=== PATIENT | female | born 1985 | race Caucasian/White ===

== ENCOUNTER 2018-08-04 13:27 | Emergency (ER) | payer OTHER ==
[2018-08-04] MEDS ORDERED: TETRACAINE HCL 0.5% 2ML OPTH ONE (14:44)
[2018-08-04] MEDS ORDERED: FLUORESCEIN SODIUM 0.6 MG/WRAP ONE (14:44)
[2018-08-04] MEDS ORDERED: WATER FOR INJ,STERILE 10 ML ONE (14:47)
--- NOTE | 2018-08-04 14:52 | ER ---
Nurse's Notes [facility] Name: Suri Oliveira Age: 32 yrs Sex: Female : 1985 Arrival Date: 08/04/2018 Time: 13:40 Bed 15 Private MD: Diagnosis: Ocular pain, left eye Presentation: 08/04 13:42 Presenting complaint: Patient states: "A couple of days ago my left eye started aj1 hurting, so I looked to see if there was something in there but I couldn't see anything. Today its starting to blur and give me a headache and it feels like something is stabbing me in the eyeball." Denies injury to eye. Transition of care: patient was not received from another setting of care. Onset of symptoms was July 30, 2018. Risk Assessment: Do you want to hurt yourself or someone else? Patient reports no desire to harm self or others. Initial Sepsis Screen: Does the patient meet any 2 criteria? No. Patient's initial sepsis screen is negative. Does the patient have a suspected source of infection? No. Patient's initial sepsis screen is negative. Care prior to arrival: None. 13:42 Method Of Arrival: Ambulatory aj1 13:42 Acuity: AROLDO 3 aj1 Triage Assessment: 13:44 General: Appears in no apparent distress. comfortable, Behavior is calm, cooperative, aj1 appropriate for age. Pain: Complains of pain in left eye Pain does not radiate. Pain currently is 6 out of 10 on a pain scale. Neuro: Level of Consciousness is awake, alert, obeys commands. Cardiovascular: Patient's skin is warm and dry. Respiratory: Airway is patent Respiratory effort is even, unlabored, Respiratory pattern is regular, symmetrical. 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 - Social history:: Smoking status: Patient/guardian denies using tobacco. - Ebola Screening: : Patient denies travel to an Ebola-affected area in the 21 days before illness onset. - Family history:: not pertinent. Screenin:14 Abuse screen: Denies threats or abuse. Denies injuries from another. Nutritional hj screening: No deficits noted. Tuberculosis screening: No symptoms or risk factors identified. Fall Risk None identified. Assessment: 13:30 General: Appears in no apparent distress. uncomfortable, Behavior is calm, cooperative, hj appropriate for age. Pain: Complains of pain in left eye. Neuro: Level of Consciousness is awake, alert, obeys commands, Oriented to person, place, time, situation, Appropriate for age. Cardiovascular: Capillary refill < 3 seconds Patient's skin is warm and dry. Respiratory: Airway is patent Respiratory effort is even, unlabored, Respiratory pattern is regular, symmetrical. GI: No signs and/or symptoms were reported involving the gastrointestinal system. : No signs and/or symptoms were reported regarding the genitourinary system. EENT: Reports pain in left eye. Derm: No signs and/or symptoms reported regarding the dermatologic system. Musculoskeletal: No signs and/or symptoms reported regarding the musculoskeletal system. Vital Signs: 13:44 BP 111 / 89; Pulse 81; Resp 18; Temp 97.4; Pulse Ox 100% on R/A; Weight 56.7 kg (R); aj1 Height 5 ft. 6 in. (167.64 cm) (R); Pain 6/10; 14:56 BP 110 / 80; Pulse 80; Resp 18; Pulse Ox 100% on R/A; hj 13:44 Body Mass Index 20.18 (56.70 kg, 167.64 cm) aj1 Visual Acuity: 14:55 Left Eye Visual acuity 20/25, ; Right Eye Visual acuity 20/20, ; Both Eyes Visual hj acuity 20/25; With Lenses; ED Course: 13:40 Patient arrived in ED. mr 13:44 Triage completed. aj1 13:44 Arm band placed on Patient placed in an exam room. aj1 14:00 Timothy Campbell RN is Primary Nurse. hj 14:06 Augusto Bacon MD is Attending Physician. [facility] 14:14 Patient has correct armband on for positive identification. Bed in low position. Call hj light in reach. Side rails up X 1. 14:55 No provider procedures requiring assistance completed. Patient did not have IV access hj during this emergency room visit. 15:17 Primary Nurse role handed off by Timothy Campbell RN hj Administered Medications: 14:44 Drug: Tetracaine Drops 0.5 % 1 drops Route: Ophthalmic; Site: left eye; la1 Outcome: 14:51 Discharge ordered by . katherin 14:55 Discharged to home ambulatory. 14:55 Condition: stable 14:55 Discharge instructions given to patient, Instructed on discharge instructions, follow up and referral plans. Demonstrated understanding of instructions, follow-up care. 15:02 Instructed on medication usage, Demonstrated understanding of medications. hj 15:02 Patient left the ED. hj 15:19 Patient left the ED. Signatures: Fabiana Santamaria, RN RN aj1 Augusto Bacon MD MD cha Rivera, Mary mr Alcon Estrada RN RN laTimothy Keys RN RN hj
--- NOTE | 2018-08-04 14:52 | EDPHYS ---
Physician Documentation [facility] Name: Suri Oliveira Age: 32 yrs Sex: Female : 1985 Arrival Date: 08/04/2018 Time: 13:40 Bed 15 Private MD: ED Physician Augusto Bacon HPI: 08/04 14:43 This 32 yrs old Female presents to ER via Ambulatory with complaints of Eye katherin Problem. 14:43 to the left eye. Onset: The symptoms/episode began/occurred 2 day(s) ago. Duration: the katherin symptoms are continuous. Aggravated by opening eye, rubbing. Associated signs and symptoms: Pertinent positives: None. Patient does not utilize any form of vision correction. Severity of symptoms: At their worst the symptoms were mild moderate in the emergency department the symptoms have improved moderately. The patient has not experienced similar symptoms in the past. 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 - Social history:: Smoking status: Patient/guardian denies using tobacco. - Ebola Screening: : Patient denies travel to an Ebola-affected area in the 21 days before illness onset. - Family history:: not pertinent. ROS: 14:43 Constitutional: Negative for fever, chills, and weight loss, ENT: Negative for injury, katherin pain, and discharge, Neck: Negative for injury, pain, and swelling, Cardiovascular: Negative for chest pain, palpitations, and edema, Respiratory: Negative for shortness of breath, cough, wheezing, and pleuritic chest pain, Abdomen/GI: Negative for abdominal pain, nausea, vomiting, diarrhea, and constipation, Back: Negative for injury and pain, : Negative for injury, bleeding, discharge, and swelling, MS/Extremity: Negative for injury and deformity, Skin: Negative for injury, rash, and discoloration, Neuro: Negative for headache, weakness, numbness, tingling, and seizure, Psych: Negative for depression, anxiety, suicide ideation, homicidal ideation, and hallucinations, Allergy/Immunology: Negative for hives, rash, and allergies, Endocrine: Negative for neck swelling, polydipsia, polyuria, polyphagia, and marked weight changes, Hematologic/Lymphatic: Negative for swollen nodes, abnormal bleeding, and unusual bruising. 14:43 Eyes: Positive for pain, redness, of the outer aspect of conjuctiva of left eye, iris of left eye and inner aspect of conjunctiva of left eye. Exam: 14:43 Constitutional: This is a well developed, well nourished patient who is awake, alert, katherin and in no acute distress. Head/Face: Normocephalic, atraumatic. ENT: Nares patent. No nasal discharge, no septal abnormalities noted. Tympanic membranes are normal and external auditory canals are clear. Oropharynx with no redness, swelling, or masses, exudates, or evidence of obstruction, uvula midline. Mucous membranes moist. Neck: Trachea midline, no thyromegaly or masses palpated, and no cervical lymphadenopathy. Supple, full range of motion without nuchal rigidity, or vertebral point tenderness. No Meningismus. Chest/axilla: Normal chest wall appearance and motion. Nontender with no deformity. No lesions are appreciated. Cardiovascular: Regular rate and rhythm with a normal S1 and S2. No gallops, murmurs, or rubs. Normal PMI, no JVD. No pulse deficits. Respiratory: Lungs have equal breath sounds bilaterally, clear to auscultation and percussion. No rales, rhonchi or wheezes noted. No increased work of breathing, no retractions or nasal flaring. Abdomen/GI: Soft, non-tender, with normal bowel sounds. No distension or tympany. No guarding or rebound. No evidence of tenderness throughout. Back: No spinal tenderness. No costovertebral tenderness. Full range of motion. Skin: Warm, dry with normal turgor. Normal color with no rashes, no lesions, and no evidence of cellulitis. MS/ Extremity: Pulses equal, no cyanosis. Neurovascular intact. Full, normal range of motion. Neuro: Awake and alert, GCS 15, oriented to person, place, time, and situation. Cranial nerves II-XII grossly intact. Motor strength 5/5 in all extremities. Sensory grossly intact. Cerebellar exam normal. Normal gait. Psych: Awake, alert, with orientation to person, place and time. Behavior, mood, and affect are within normal limits. 14:43 Eyes: Pupils: no acute changes, equal, round, and reactive to light and accomodation, Extraocular movements: no acute changes, Conjunctiva: injected, in the left eye, Corneas: are normal, no acute changes, abrasion, is not appreciated, foreign body, is not appreciated, Sclera: no appreciated abnormality, no acute changes, Anterior chamber: normal, no acute changes, Lids and lashes: appear normal, no acute changes, no evidence of trauma, Visual hutton: are intact, no acute changes, Nystagmus: is not appreciated. 14:49 Eyes: Periorbital structures: no acute changes, no abrasion, no cellulitis, no katherin contusion, no ecchymosis, no erythema, no laceration, no swelling. Vital Signs: 13:44 BP 111 / 89; Pulse 81; Resp 18; Temp 97.4; Pulse Ox 100% on R/A; Weight 56.7 kg (R); aj1 Height 5 ft. 6 in. (167.64 cm) (R); Pain 6/10; 14:56 BP 110 / 80; Pulse 80; Resp 18; Pulse Ox 100% on R/A; hj 13:44 Body Mass Index 20.18 (56.70 kg, 167.64 cm) aj1 Visual Acuity: 14:55 Left Eye Visual acuity 20/25, ; Right Eye Visual acuity 20/20, ; Both Eyes Visual hj acuity 20/25; With Lenses; MDM: 14:06 Patient medically screened. [facility] 14:43 Data reviewed: vital signs, nurses notes. [facility] 08/04 14:43 Order name: Visual Acuity; Complete Time: 14:44 [facility] 08/04 14:43 Order name: Eye Tray; Complete Time: 14:44 [facility] 08/04 14:43 Order name: Fluoresene Opth strip; Complete Time: 14:44 [facility] Administered Medications: 14:44 Drug: Tetracaine Drops 0.5 % 1 drops Route: Ophthalmic; Site: left eye; la1 Disposition: 08/04/18 14:51 Discharged to Home. Impression: Ocular pain, left eye. - Condition is Stable. - Discharge Instructions: Bacterial Conjunctivitis, Viral Conjunctivitis. - Prescriptions for Polytrim 10,000 unit- 1 mg/mL Ophthalmic drops - instill 1 drop by OPHTHALMIC route every 6 hours; 10 drop. - Medication Reconciliation Form, Thank You Letter, Antibiotic Education, Prescription Opioid Use form. - Follow up: Private Physician; When: 2 - 3 days; Reason: Recheck today's complaints, Continuance of care, Re-evaluation by your physician. - Problem is new. - Symptoms have improved. Signatures: Fabiana Santamaria, RN RN aj1 Augusto Bacon MD MD cha Attema, Lee, RN RN la1 Timothy Campbell RN RN hj Corrections: (The following items were deleted from the chart) 15:02 14:51 08/04/2018 14:51 Discharged to Home. Impression: Ocular pain, left eye. Condition hj is Stable. Forms are Medication Reconciliation Form, Thank You Letter, Antibiotic Education, Prescription Opioid Use. Follow up: Private Physician; When: 2 - 3 days; Reason: Recheck today's complaints, Continuance of care, Re-evaluation by your physician. Problem is new. Symptoms have improved. [facility] 15:19 15:02 08/04/2018 14:51 Discharged to Home. Impression: Ocular pain, left eye. Condition hj is Stable. Discharge Instructions: Bacterial Conjunctivitis, Viral Conjunctivitis. Prescriptions for Polytrim 10,000 unit- 1 mg/mL Ophthalmic drops - instill 1 drop by OPHTHALMIC route every 6 hours; 10 drop. and Forms are Medication Reconciliation Form, Thank You Letter, Antibiotic Education, Prescription Opioid Use. Follow up: Private Physician; When: 2 - 3 days; Reason: Recheck today's complaints, Continuance of care, Re-evaluation by your physician. Problem is new. Symptoms have improved. hj
== END 2018-08-04 15:19 | disposition home or self-care (01) ==
LOC: ER 13:27
DX: H57.12 Ocular pain, left eye (principal)
CPT/HCPCS: 99283